=== PATIENT | female | born 1950 | race Caucasian/White ===

== ENCOUNTER → 2017-04-19 | Outpatient (CLI) | payer MEDICARE, OTHER ==
--- NOTE | ~2017-04-19 | ENPV ---
Carotid Duplex Study Demographics Patient Name HONEY CARPENTER Date of Study 04/19/2017 Patient Number [id number] Gender Female Date of 1950 Age 66 Visit Number [id number] Height 67 Accession Number [id number] Weight 236.01 Referring Kimberley Burns Interpreting Pedro Mcdonnell MD Physician Leanne Pham MD Physician Physician Ordering Physician Kimberley Burns Chair Caner Care Aide Devon Fairbanks T Conclusions Summary Bilateral proximal internal carotid arteries have mild, 1-39%, stenosis by homogenous plaque. Bilateral vertebral arteries are antegrade. Procedure Type of Study: Cerebral:Carotid, Carotid Doppler Bilateral. Indications for Study:TIA and TIA (Transient Ischemic Attack). Patient Status:Routine. Study Location:Vascular Lab. Technical Quality:Adequate visualization. Velocities are measured in cm/s ; Diameters are measured in cm Carotid Right Measurements Carotid Left Measurements + +--------+--------+ + + + +--------+ --------+ + + !Location !PSV !EDV !Angle !%Stenosis ! !Location !PSV ! EDV !Angle !%Stenosis ! + +--------+--------+ + + + +--------+ --------+ + + !Prox CCA !73 !16 !60 ! ! !Prox CCA !93 ! 22 !52 ! ! + +--------+--------+ + + + +--------+ --------+ + + !Dist CCA !80 !25 !60 ! ! !Dist CCA !86 ! 23 !60 ! ! + +--------+--------+ + + + +--------+ --------+ + + !Prox ICA !56 !17 !60 !1-39% ! !Prox ICA !43 ! 15 !52 !1-39% ! + +--------+--------+ + + + +--------+ --------+ + + !Dist ICA !54 !24 !60 ! ! !Dist ICA !84 ! 33 !52 ! ! + +--------+--------+ + + + +--------+ --------+ + + !Prox ECA !55 ! !60 ! ! !Prox ECA !42 ! !60 ! ! + +--------+--------+ + + + +--------+ --------+ + + !Vertebral !40 ! !38 ! ! !Vertebral !36 ! !52 ! ! + +--------+--------+ + + + +--------+ --------+ + + !Subclavian !128 ! ! ! ! !Subclavian !77 ! ! ! ! + +--------+--------+ + + + +--------+ --------+ + + - There is antegrade vertebral flow noted on the right side. - There is antegrade verte bral flow noted on the left side. - Add'l Measurements:ICAPSV/CCAPSV 0.76.ICAEDV/CCAEDV 1.49. - Add'l Measurements:ICAPS V/CCAPSV 0.91.ICAEDV/CCAEDV 1.51. Signature dtt: ANTOLIN HUNTER: 04/19/17 0827 Physician Self Edit
--- NOTE | ~2017-04-19 | ECHO ---
Transthoracic Echocardiography Report (TTE) Demographics Patient Name HONEY CARPENTER Date of Study 04/19/2017 Darrell Patient Number [id number] Visit Number [id number] Date of 1950 Room Number Gender Female Number Age 66 year(s) Referring Kimberley Burns Slip Box Changer Chano Hugo RDCS, RVT, Physician RD, MANAGER ENGAGEMENT Physician Interpreting Tisha Howard MD Heater Planer Operator Physician Supervising Ordering Leanne Esquivel MD/ERIN Physician Nurse Stress Overnight Caregiver Conclusions Summary Normal LV/RV size and systolic function. The estimated left ventricular ejection fraction is 60-65%. Diastolic assessment reveals Grade I diastolic dysfunction. Mild concentric left ventricular hypertrophy. There is no evidence of patent foramen ovale or atrial septal defect by color Doppler. The left atrium is mildly dilated by LA volume index measurement. No significant valvular abnormalities. Procedure Type of Study TTE procedure:2D Echocardiogram, M-Mode, Doppler , Color Doppler. Procedure Date Date: 04/19/2017 Start: 08:45 AM Study Location: Echo Lab Technical Quality: Adequate visualization Additional Indications:TIA Appropriate Use Criteria: 7 Patient Status: Routine HR: 68 bpm BP: 124/82 mmHg M-Mode/2D Measurements LV Diastolic Dimension: 4.1 cm LV Systolic Dimension: 2.15 cm LV Septum Diastolic: 1.13 cm LV PW Diastolic: 1.17 cm AO Root Dimension: 3 cm AV Cusp Separation: 1.8 cm RV Diastolic Dimension: 3.29 cm LA Dimension: 3.1 cm LA volume: 87 ml RV Base: 3.2 cm LVOT: 1.8 cm RV Mid: 2.8 cm RV Length: 6.3 cm TAPSE: 3.3 cm TDI-S': 13 cm/s Doppler Measurements AV Peak Velocity: 1.35 m/s MV Peak E-Wave: 0.63 m/s AV Peak Gradient: 7.29 mmHg MV Peak A-Wave: 0.86 m/s LVOT Peak Velocity: 1.05 m/s MV E/A Ratio: 0.74 MV Deceleration Time: 299 msec E' Septal Velocity: 0.09 m/s PV Peak Velocity: 0.8 m/s E' Lateral Velocity: 0.07 m/s PV Peak Gradient: 2.56 mmHg A' Septal Velocity: 0.11 m/s Findings Left Ventricle Diastolic assessment reveals Grade I diastolic dysfunction. The left ventricle is normal in size . Mild concentric left ventricular hypertrophy. Normal systolic function is noticed. Right Ventricle Normal right ventricle structure and function. Left Atrium There is no evidence of patent foramen ovale or atrial septal defect by color Doppler. The left atrium is mildly dilated by LA volume index measurement. Right Atrium The right atrium is mildly dilated. Normal appearing interatrial septum. IVC imaging is consistent with normal RA pressures. Mitral Valve Normal mitral valve structure and function. Aortic Valve Mildly sclerotic non coronary cusp with normal excursion. Tricuspid Valve Normal tricuspid valve structure and function. Mild tricuspid regurgitation. Pulmonic Valve Normal pulmonic valve structure and function. Pericardial Effusion No evidence of pericardial effusion. Miscellaneous Visualized portions of the aortic root and ascending aorta appear normal in size. Pleural Effusion No evidence of pleural effusion. Signature dtt: MARTITA VIGIL dtd: 04/19/17 0845 Physician Self Edit
== END | disposition disaster alternative care site (69) ==
LOC: GRAD 07:47
DX: G45.9 Transient cerebral ischemic attack, unspecified (principal); I51.7 Cardiomegaly

== ENCOUNTER → 2017-04-28 | Outpatient (CLI) | payer MEDICARE, OTHER | END | disposition disaster alternative care site (69) | LOC: GRAD 12:31 | DX: G44.52 New daily persistent headache (NDPH) (principal) ==